=== PATIENT | female | born 1970 | race Caucasian/White ===

== ENCOUNTER 2018-08-04 21:52 | Emergency (ER) | payer SELFPAY ==
[2018-08-04 22:37] LABS: Absolute Lymphocytes (CBC) 1.9 K/uL (0.7-4.9); Basophils % 0.4 % (0-1.3); Eosinophils % 2.7 % (0-4.4); Hematocrit 37.2 % (36.0-45.0); Lymphocytes % 21.5 % (15.3-44.8); MPV 8.9 fL (7.6-11.3); Monocytes % 8.5 % (3.3-12.3); RBC Red Blood Cell Count 3.84 M/uL (3.86-4.86)
[2018-08-04] MEDS ORDERED: MORPHINE 4 MG/ML SYR ONE (22:46)
[2018-08-04] MEDS ORDERED: NA CHLORIDE 0.9% 1,000 ML ONE (22:46)
[2018-08-04] MEDS ORDERED: ONDANSETRON 4 MG/2 ML VIAL ONE (22:46)
[2018-08-04 22:50] LABS: ALT/SGPT 44 U/L (12-78); AST/SGOT 28 U/L (15-37); Albumin 3.5 g/dL (3.4-5.0); Alkaline Phosphatase 92 U/L (45-117); BUN Blood Urea Nitrogen 14 mg/dL (7-18); Bicarbonate 33 mmol/L (21-32); Bilirubin Direct < 0.1 mg/dL (0-0.2); Bilirubin Total 0.1 mg/dL (0.2-1.0); Glucose Level 86 mg/dL (74-106); Lipase 472 U/L (73-393); Potassium 3.9 mmol/L (3.5-5.1); Protein, Total 6.8 g/dL (6.4-8.2); Sodium Level 139 mmol/L (136-145)
[2018-08-04 23:08] LABS: Urine Blood 1+ (NEG); Urine Glucose NEGATIVE (NEG); Urine Protein NEGATIVE (NEG)
[2018-08-04 23:40] LABS: Urine Bacteria <20 /HPF (<20); Urine Culture Reflex Order REFLEXED; Urine RBC NONE SEEN /HPF (NONE SEEN)
[2018-08-05] MEDS ORDERED: TAMSULOSIN 0.4 MG SR CAP ONE (00:44)
--- NOTE | 2018-08-05 00:58 | EDPHYS ---
Physician Documentation [facility] Name: Nicky Rodríguez Age: 48 yrs Sex: Female : 1970 Arrival Date: 08/04/2018 Time: 21:59 Bed 15 Private MD: ED Physician Chris Chu HPI: 08/04 22:07 This 48 yrs old Female presents to ER via Ambulatory with complaints of Blood jmm in urine, Flank Pain. 22:07 The patient presents with abdominal pain. Onset: The symptoms/episode began/occurred jmm acutely, 3 day(s) ago. The symptoms are described as achy, sharp. This is a 48 year old female with no known chronic medical conditions that presents to the ED with complaints of right flank pain beginning approx 3 days ago with blood noted in her urine. Patient denies fever. . 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 - Social history:: Smoking status: Patient uses tobacco products, smokes one-half pack cigarettes per day, Patient/guardian denies using alcohol, street drugs. - Ebola Screening: : Patient negative for fever greater than or equal to 101.5 degrees Fahrenheit, and additional compatible Ebola Virus Disease symptoms Patient denies exposure to infectious person Patient denies travel to an Ebola-affected area in the 21 days before illness onset. ROS: 22:11 Constitutional: Negative for fever, chills, and weight loss, Cardiovascular: Negative jmm for chest pain, palpitations, and edema, Respiratory: Negative for shortness of breath, cough, wheezing, and pleuritic chest pain. 22:11 Abdomen/GI: Positive for abdominal pain. 22:11 Back: Positive for flank pain. 22:11 All other systems are negative. Exam: 22:11 Head/Face: atraumatic. Eyes: EOMI, no conjunctival erythema appreciated ENT: Moist jmm Mucus Membranes Neck: Trachea midline, Supple Chest/axilla: Normal chest wall appearance and motion. Cardiovascular: Regular rate and rhythm. No edema appreciated Respiratory: Normal respirations, no respiratory distress appreciated 22:11 Skin: General appearance color normal MS/ Extremity: Moves all extremities, no obvious deformities appreciated, no edema noted to the lower extremities Neuro: Awake and alert, normal gait Psych: Behavior is normal, Mood is normal, Patient is cooperative and pleasant 22:11 Constitutional: The patient appears alert, awake, uncomfortable. 22:11 Abdomen/GI: Inspection: abdomen appears normal, Bowel sounds: normal, Palpation: mild abdominal tenderness, in the right lower quadrant. 22:11 Back: CVA tenderness, that is moderate, is noted on the right. Vital Signs: 22:10 BP 122 / 76; Pulse 90; Resp 20; Temp 98.6; Pulse Ox 100% ; Weight 58.97 kg; Height 5 rr5 ft. 4 in. (162.56 cm); Pain 7/10; 23:12 BP 120 / 70; Pulse 80; Resp 17; Pulse Ox 100% on R/A; Pain 2/10; rr5 08/05 00:00 BP 121 / 83; Pulse 72; Resp 16; Pulse Ox 99% ; rr5 01:00 BP 116 / 70; Pulse 70; Resp 19; Temp 98.5; Pulse Ox 99% ; Pain 0/10; rr5 08/04 22:10 Body Mass Index 22.31 (58.97 kg, 162.56 cm) rr5 MDM: 08/04 22:07 Patient medically screened. [facility] 08/05 00:55 Data reviewed: vital signs, nurses notes. Counseling: I had a detailed discussion with terry the patient and/or guardian regarding: the historical points, exam findings, and any diagnostic results supporting the discharge/admit diagnosis, lab results, radiology results, the need for outpatient follow up, to return to the emergency department if symptoms worsen or persist or if there are any questions or concerns that arise at home. ED course: Pain relieved in the ED. Patient is advised to follow up with urology and is otherwise given strict return precautions. Patient understood and agrees with the plan of care. . 08/04 22:06 Order name: Basic Metabolic Panel; Complete Time: 23:02 [facility] 08/04 22:06 Order name: CBC with Diff; Complete Time: 22:43 [facility] 08/04 22:06 Order name: Creatinine for Radiology; Complete Time: 23:02 [facility] 08/04 22:06 Order name: Hepatic Function; Complete Time: 23:02 [facility] 08/04 22:06 Order name: Lipase; Complete Time: 23:02 [facility] 08/04 22:33 Order name: Urine Dipstick--Ancillary (enter results); Complete Time: 23:20 08/04 22:22 Order name: CT Stone Protocol [facility] 08/04 22:41 Order name: Urine Microscopic Only [facility] 08/04 22:44 Order name: Urine Microscopic Only; Complete Time: 23:52 [facility] 08/04 23:44 Order name: Urine Culture [facility] 08/04 22:06 Order name: IV Saline Lock; Complete Time: 22:44 [facility] 08/04 22:06 Order name: Labs collected and sent; Complete Time: 22:44 [facility] 08/04 22:18 Order name: Urine Dipstick-Ancillary (obtain specimen); Complete Time: 22:34 [facility] 08/04 22:18 Order name: Urine Test (obtain specimen); Complete Time: 22:44 [facility] Administered Medications: 08/04 21:35 Drug: NS 0.9% 1000 ml Route: IV; Rate: 1 bolus; Site: right forearm; rr5 22:35 Follow up: time given 2235 not 2135 rr5 08/05 01:00 Follow up: Response: No adverse reaction; IV Status: Completed infusion; IV Intake: rr5 1000ml 08/04 21:36 Drug: Zofran 4 mg Route: IVP; Site: right forearm; rr5 22:41 Follow up: time given 2236 not 2136 rr5 23:40 Follow up: Response: No adverse reaction rr5 21:40 Drug: morphine 4 mg Route: IVP; Site: right forearm; rr5 22:40 Follow up: time given 2235 not 2135H rr5 22:41 Follow up: time given 2240 not 2140 rr5 23:40 Follow up: Response: No adverse reaction 5 08/05 00:40 Drug: Flomax 0.4 mg Route: PO; lp1 01:15 Follow up: Response: No adverse reaction rr5 00:42 CANCELLED (Duplicate Order): Ketorolac 30 mg IVP once [facility] 00:46 Drug: TORadol 30 mg Route: IVP; Site: right forearm; rr5 01:14 Follow up: Response: No adverse reaction rr5 Disposition: 08:24 Co-signature as Attending Physician, Chris Chu MD I agree with the assessment and [facility] plan of care. Disposition: 08/05/18 00:57 Discharged to Home. Impression: Calculus of kidney and ureter. - Condition is Stable. - Discharge Instructions: Kidney Stones. - Prescriptions for Zofran ODT 4 mg Oral tablet,disintegrating - place 1 tablet by TRANSLINGUAL route every 4-6 hours; 20 tablet. Tylenol- Codeine #3 300-30 mg Oral Tablet - take 1 tablet by ORAL route every 6 hours As needed; 20 tablet. Flomax 0.4 mg Oral Capsule, Sust. Release 24 hr - take 1 capsule by ORAL route once daily 1/2 hour following the same meal each day; 30 capsule. - Medication Reconciliation Form, Thank You Letter, Antibiotic Education, Prescription Opioid Use form. - Follow up: Padmini Chavarria MD; When: 1 - 2 days; Reason: Recheck today's complaints, Continuance of care, Re-evaluation by your physician. Signatures: Dispatcher [employer] EDChris Agustin MD MD cha Mickail, Joel, PA PA jmm Pena, Laura, RN RN lp1 Umair Faria RN RN rr5 Corrections: (The following items were deleted from the chart) 00:42 00:42 Ketorolac 30 mg IVP once ordered. terry stewart 01:16 00:57 08/05/2018 00:57 Discharged to Home. Impression: Calculus of kidney and ureter. rr5 Condition is Stable. Forms are Medication Reconciliation Form, Thank You Letter, Antibiotic Education, Prescription Opioid Use. Follow up: Padmini Chavarria; When: 1 - 2 days; Reason: Recheck today's complaints, Continuance of care, Re-evaluation by your physician. terry
--- NOTE | 2018-08-05 00:58 | ER ---
Nurse's Notes [facility] Name: Nicky Rodríguez Age: 48 yrs Sex: Female : 1970 Arrival Date: 08/04/2018 Time: 21:59 Bed 15 Private MD: Diagnosis: Calculus of kidney and ureter Presentation: 08/04 22:05 Presenting complaint: Patient states: 3 days ago started to have right mid back pain rr5 and i pee blood like cranberry in color. today i cannot tolerate the pain. 22:05 Transition of care: patient was not received from another setting of care. Onset of rr5 symptoms was August 01, 2018. Risk Assessment: Do you want to hurt yourself or someone else? Patient reports no desire to harm self or others. Initial Sepsis Screen: Does the patient meet any 2 criteria? No. Patient's initial sepsis screen is negative. Does the patient have a suspected source of infection? No. Patient's initial sepsis screen is negative. Care prior to arrival: None. 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 - Social history:: Smoking status: Patient uses tobacco products, smokes one-half pack cigarettes per day, Patient/guardian denies using alcohol, street drugs. - Ebola Screening: : Patient negative for fever greater than or equal to 101.5 degrees Fahrenheit, and additional compatible Ebola Virus Disease symptoms Patient denies exposure to infectious person Patient denies travel to an Ebola-affected area in the 21 days before illness onset. Screenin:00 Abuse screen: Denies threats or abuse. Denies injuries from another. Nutritional rr5 screening: No deficits noted. Tuberculosis screening: No symptoms or risk factors identified. Fall Risk IV access (20 points). Total Hunter Fall Scale indicates No Risk (0-24 pts). Assessment: 22:05 General: Appears in no apparent distress. uncomfortable, Behavior is calm, cooperative, rr5 appropriate for age. Pain: Complains of pain in left flank Pain radiates to right upper quadrant Pain currently is 7 out of 10 on a pain scale. Quality of pain is described as sharp, Pain began gradually, Is intermittent. 22:05 Neuro: Level of Consciousness is awake, alert, obeys commands, Oriented to person, rr5 place, time, situation, Appropriate for age. Cardiovascular: Capillary refill < 3 seconds Patient's skin is warm and dry. Respiratory: Airway is patent Respiratory effort is even, unlabored, Respiratory pattern is regular, symmetrical. GI: Abdomen is round Reports upper abdominal pain, nausea. : Urine is clear, Reports pain in right flank(s), blood in urine. EENT: No signs and/or symptoms were reported regarding the EENT system. Derm: Skin is intact, Skin temperature is warm. Musculoskeletal: Circulation, motion, and sensation intact. Capillary refill < 3 seconds, Range of motion: intact in all extremities. 23:10 Reassessment: Patient appears in no apparent distress at this time. Patient is alert, rr5 oriented x 3, equal unlabored respirations, skin warm/dry/pink. Patient states feeling better. Patient states symptoms have improved. 08/05 00:00 Reassessment: Patient appears in no apparent distress at this time. Patient is alert, rr5 oriented x 3, equal unlabored respirations, skin warm/dry/pink. asleep on bed comfortably. 00:30 Reassessment: pain came back with pain score of 5/10. ED provider aware with order made rr5 and carried out. 01:10 Reassessment: Patient appears in no apparent distress at this time. Patient is alert, rr5 oriented x 3, equal unlabored respirations, skin warm/dry/pink. discharge instruction given and explained without complaints made. Patient denies pain at this time. Patient states feeling better. Patient states symptoms have improved. Vital Signs: 08/04 22:10 BP 122 / 76; Pulse 90; Resp 20; Temp 98.6; Pulse Ox 100% ; Weight 58.97 kg; Height 5 rr5 ft. 4 in. (162.56 cm); Pain 7/10; 23:12 BP 120 / 70; Pulse 80; Resp 17; Pulse Ox 100% on R/A; Pain 2/10; rr5 08/05 00:00 BP 121 / 83; Pulse 72; Resp 16; Pulse Ox 99% ; rr5 01:00 BP 116 / 70; Pulse 70; Resp 19; Temp 98.5; Pulse Ox 99% ; Pain 0/10; rr5 08/04 22:10 Body Mass Index 22.31 (58.97 kg, 162.56 cm) rr5 ED Course: 08/04 21:59 Patient arrived in ED. es 22:05 Lalo Swan PA is PHCP. jmm 22:05 Chris Chu MD is Attending Physician. jmm 22:07 Umair Faria, EVER is Primary Nurse. rr5 22:10 Triage completed. rr5 22:10 Arm band placed on right wrist. rr5 22:15 Patient has correct armband on for positive identification. Placed in gown. Bed in low rr5 position. Call light in reach. Side rails up X2. 22:25 Radiology exam delayed due to test not completed at this time. vm2 22:30 Inserted saline lock: 20 gauge in right forearm, using aseptic technique. Blood rr5 collected. 22:50 CT completed. Patient tolerated procedure well. Patient moved to CT via wheelchair. nj Patient moved back from CT. 08/05 00:56 Padmini Chavarria MD is Referral Physician. [facility] 01:12 No provider procedures requiring assistance completed. IV discontinued, intact, rr5 bleeding controlled, No redness/swelling at site. Pressure dressing applied. Administered Medications: 08/04 21:35 Drug: NS 0.9% 1000 ml Route: IV; Rate: 1 bolus; Site: right forearm; rr5 22:35 Follow up: time given 2235 not 2135 rr5 08/05 01:00 Follow up: Response: No adverse reaction; IV Status: Completed infusion; IV Intake: rr5 1000ml 08/04 21:36 Drug: Zofran 4 mg Route: IVP; Site: right forearm; rr5 22:41 Follow up: time given 2236 not 2136 rr5 23:40 Follow up: Response: No adverse reaction rr5 21:40 Drug: morphine 4 mg Route: IVP; Site: right forearm; rr5 22:40 Follow up: time given 2235 not 2135H rr5 22:41 Follow up: time given 2240 not 2140 rr5 23:40 Follow up: Response: No adverse reaction rr5 08/05 00:40 Drug: Flomax 0.4 mg Route: PO; lp1 01:15 Follow up: Response: No adverse reaction rr5 00:42 CANCELLED (Duplicate Order): Ketorolac 30 mg IVP once m 00:46 Drug: TORadol 30 mg Route: IVP; Site: right forearm; rr5 01:14 Follow up: Response: No adverse reaction rr5 Intake: 01:00 IV: 1000ml; Total: 1000ml. rr5 Outcome: 00:57 Discharge ordered by . terry 01:12 Discharged to home ambulatory. rr5 01:12 Condition: stable 01:12 Discharge instructions given to patient, Instructed on discharge instructions, follow up and referral plans. medication usage, Demonstrated understanding of instructions, follow-up care, medications, Prescriptions given X 3. 01:16 Patient left the ED. rr5 Signatures: Lalo Swan PA PA jmm Salyer, Edna es Pena, Laura, RN RN lp1 Jonathan Peterson [facility] Umair Faria RN RN rr5
[2018-08-05] MEDS ORDERED: KETOROLAC 30 MG/ML INJ ONE (01:01)
--- NOTE | 2018-08-05 10:17 | RAD REPORT ---
EXAM DESCRIPTION: CT - Stone Protocol - 08/05/2018 6:32 am CLINICAL HISTORY: Right flank pain COMPARISON: None. TECHNIQUE: CT ABDOMEN PELVIS WITHOUT IV CONTRAST on 08/04/2018 10:22 PM CDT This exam was performed according to our departmental dose-optimization program, which includes autom ated exposure control, adjustment of the mA and/or kV according to patient size and/or use of iterati ve reconstruction technique. FINDINGS: Lower lungs are clear. Abdomen: The liver is normal in appearance. There is no biliary dilatation. Gallbladder is normal in appearance. The pancreas and spleen are normal in appearance. There is a 2 mm mid pole left renal yohan culus. There is no evidence of stenosis. There is mild right hydronephrosis secondary to a 4 mm right UPJ calculus. There is also a 3 mm right UVJ calculus. Abdominal aorta is normal in course and caliber without aneurysm. There is no free air. There is no r etroperitoneal adenopathy. Pelvis: There is no bowel obstruction. Urinary bladder is unremarkable. There is no free fluid. Uteru s is normal in size. Appendix is normal. Skeleton: There are no acute osseous findings. No suspicious bony lesions. IMPRESSION: Mildly obstructing right UPJ and UVJ calculi. Electronically signed by: Pelon Jamil MD 08/04/2018 11:19 PM CDT Due to temporary technical issues with the PACS/Fluency reporting system, reports are being signed by the in house radiologist as a courtesy to ensure prompt reporting. The interpreting radiologist is f ully responsible for the content of the report.
== END 2018-08-05 01:16 | disposition home or self-care (01) ==
LOC: ER 21:52
DX: N20.2 Calculus of kidney with calculus of ureter (principal); F17.210 Nicotine dependence, cigarettes, uncomplicated; Z88.3 Allergy status to other anti-infective agents; Z88.5 Allergy status to narcotic agent; Z88.8 Allergy status to other drugs, medicaments and biological substances
CPT/HCPCS: 36415; 74176; 76377; 80048; 80076; 81003; 81015; 83690; 85025; 87086; 87088; 96361; 96374; 96375; 99284; J2405; J7030